=== PATIENT | female | born 1975 | race Native Hawaiian/Other Pacific Islander ===

== ENCOUNTER 2016-12-13 11:04 | Emergency (ER) | payer MEDICAID ==
[2016-12-13 11:04] VITALS: BMI 21.4
[2016-12-13 11:16] VITALS: BP 104/72; TEMP 98; O2SAT 100
--- NOTE | 2016-12-13 11:52 | RAD ---
Left wrist four views History: Pain and swelling. Comparison: None available. Findings: Soft tissue swelling at the level of the left wrist. No evidence of acute displaced fracture or dislocation. Impression: Soft tissue swelling. No evidence for acute displaced fracture. If pain persists, consider MRI.
--- NOTE | 2016-12-13 12:00 | C.PDOC ---
History Of Present Illness 41 y/o female presents to the ED with complaints of left hand and wrist swelling which onset yesterday, no known injury. 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 She reports pain with flexion and extension or the wrist. Denies weakness, numbness , fever or any other complaints. Time Seen by Provider: 12/13/16 11:23 Chief Complaint (Nursing): Upper Extremity Problem/Injury History Per: Patient History/Exam Limitations: no limitations Onset/Duration Of Symptoms: Hrs Current Symptoms Are (Timing): Still Present Quality: "Pain" Severity: Moderate Exacerbating Factor(s): Movement Recent travel outside of the [place]: No Past Medical History Reviewed: Historical Data, Nursing Documentation, Vital Signs Vital Signs: Last Vital Signs Temp 98.0 F 12/13/16 11:10 Pulse 79 12/13/16 12:13 Resp 18 12/13/16 12:13 BP 104/72 12/13/16 11:10 Pulse Ox 100 12/13/16 12:49 Family History: States: Unknown Family Hx - Social History Hx Tobacco Use: No Hx Alcohol Use: No Hx Substance Use: No - Immunization History Hx Tetanus Toxoid Vaccination: No Hx Influenza Vaccination: Yes Hx Pneumococcal Vaccination: No Review Of Systems Constitutional: Negative for: Fever Musculoskeletal: Positive for: Other (left wrist pain) Skin: Negative for: Rash Neurological: Negative for: Weakness, Numbness Physical Exam - Physical Exam Appears: Non-toxic, No Acute Distress Skin: Warm, Dry, No Rash Extremity: Normal ROM (to left shoulder, elbow; painful rom to left wrist. ), Tenderness (mid left wrist), Capillary Refill (<2 seconds), No Deformity, Swelling (Mild swelling to dorsum left hand and distal forearm), Other (Pain with flexion and extension left wrist. No redness or warmth. No pain to elbow with pronation/supination) Extremity: Left: Bony Point Tenderness (wrist), Bilateral: Atraumatic Pulses: Left Radial: Normal Neurological/Psych: Oriented x3, Normal Speech, Normal Motor, Normal Sensation ED Course And Treatment O2 Sat by Pulse Oximetry: 100 (room air) Pulse Ox Interpretation: Normal Progress Note: Plan: tylenol, cold pack, XR wrist Medical Decision Making Medical Decision Making: left wrist pain and swelling with no preceding injury. xray to r/o fx, possibly repetitive motion injury. 1207 pm xray neg for fx, will apply wrist splint, d/c with nsaids and ortho/ hand follow up. Disposition Counseled Patient/Family Regarding: Studies Performed, Diagnosis, Need For Followup, Rx Given - Disposition Referrals: Hebert Levine MD [Staff Provider] - Ella Bowers MD [Staff Provider] - Disposition: HOME/ ROUTINE Disposition Time: 12:10 Condition: STABLE Additional Instructions: Wear wrist splint in daytime for comfort. Cold compresses to swollen area 2-3 times per day. Take ibuprofen as prescribed. Follow up with Dr Levine ( orthopedist) or Dr Bowers (hand specialist). Call for an appointment. Prescriptions: Ibuprofen [Motrin] 600 mg PO TID #30 tab Instructions: Wrist Sprain (ED) Forms: General Discharge Instructions, Work Excuse - Clinical Impression Clinical Impression: Left wrist sprain - PA / HAND ROUNDER / Resident Statement MD/DO has reviewed & agrees with the documentation as recorded. - Scribe Statement The provider has reviewed the documentation as recorded by the Addis Romero All medical record entries made by the Addis were at my direction and personally dictated by me. I have reviewed the chart and agree that the record accurately reflects my personal performance of the history, physical exam, medical decision making, and the department course for this patient. I have also personally directed, reviewed, and agree with the discharge instructions and disposition.
[2016-12-13 12:16] VITALS: PULSE 79; RESP 18
== END 2016-12-13 12:16 | disposition home or self-care (01) ==
LOC: C.ER 11:04
DX: S63.502A Unspecified sprain of left wrist, initial encounter (principal); X58.XXXA Exposure to other specified factors, initial encounter

== ENCOUNTER 2017-10-01 07:37 | Emergency (ER) | payer MEDICAID ==
[2017-10-01 07:40] VITALS: BMI 21.4
[2017-10-01] MEDS ORDERED: Acetaminophen-Codeine 300/30 mg Tab PO STA (08:12)
--- NOTE | 2017-10-01 08:27 | RAD ---
PROCEDURE: Radiographs of the Right Shoulder HISTORY: pain COMPARISON: No prior. FINDINGS: BONES: Bone alignment and mineralization are normal. There is no acute displaced fracture or bone destruction. JOINTS: Normal. Glenohumeral and acromioclavicular joints preserved. SOFT TISSUES: Normal. OTHER FINDINGS: None. IMPRESSION: Normal radiographs of the right shoulder.
[2017-10-01] MEDS ORDERED: Acetaminophen-Codeine 300/30 mg Tab PO ONE (08:29)
--- NOTE | 2017-10-01 08:30 | C.PDOC ---
History Of Present Illness 42 y/o female presents to ED with c/o atraumatic right shoulder pain for 5 days. 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 Patient is right hand dominant and denies chest pain, sob, numbness or any other complaints at this time. Time Seen by Provider: 10/01/17 07:56 Chief Complaint (Nursing): Upper Extremity Problem/Injury History Per: Patient History/Exam Limitations: no limitations Onset/Duration Of Symptoms: Days Current Symptoms Are (Timing): Still Present Quality: "Pain" Past Medical History Reviewed: Historical Data, Nursing Documentation, Vital Signs Vital Signs: Last Vital Signs Temp 98.1 F 10/01/17 07:43 Pulse 60 10/01/17 07:43 Resp 16 10/01/17 07:43 BP 118/60 10/01/17 07:43 Pulse Ox 100 10/01/17 08:48 - Medical History PMH: No Chronic Diseases Surgical History: No Surg Hx Family History: States: No Known Family Hx - Social History Hx Tobacco Use: No Hx Alcohol Use: No Hx Substance Use: No - Immunization History Hx Tetanus Toxoid Vaccination: No Hx Influenza Vaccination: Yes Hx Pneumococcal Vaccination: No Review Of Systems Except As Marked, All Systems Reviewed And Found Negative. Musculoskeletal: Positive for: Shoulder Pain Physical Exam - Physical Exam Appears: Non-toxic, No Acute Distress Skin: Warm, Dry, No Rash Head: Atraumatic, Normacephalic Eye(s): bilateral: Normal Inspection Oral Mucosa: Moist Neck: Normal ROM, Supple Cardiovascular: Rhythm Regular Respiratory: Normal Breath Sounds, No Rales, No Rhonchi, No Wheezing Extremity: Tenderness (Reproducible to anterior right shoulder with ROM), Capillary Refill (<2 seconds), No Deformity, No Swelling Pulses: Right Radial: Normal Neurological/Psych: Oriented x3, Normal Motor, Normal Sensation ED Course And Treatment O2 Sat by Pulse Oximetry: 100 (RA) Pulse Ox Interpretation: Normal Medical Decision Making Medical Decision Making: Assessment: Shoulder pain Plan: Shoulder xray ordered. Motrin and Acetaminophen/Codeine administered. Progress: On re eval patient feel better. 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 Disposition Counseled Patient/Family Regarding: Studies Performed, Diagnosis, Need For Followup, Rx Given - Disposition Disposition: HOME/ ROUTINE Disposition Time: :45 Condition: STABLE Additional Instructions: follow up with your doctor in 2 days take pain medications as needed no heavy lifting call to make an appointment return to ER if symptoms worsens or progress Prescriptions: Acetaminophen/Codeine [Tylenol/Codeine 300 MG/30 MG] 1 tab PO Q6H PRN #12 tab PRN Reason: Pain, Severe (8-10) Ibuprofen [Motrin] 400 mg PO TID PRN #20 tab PRN Reason: Pain, Mild (1-3) Instructions: Joint Pain Forms: General Discharge Instructions, [facility] (Azeri), Work Excuse - Clinical Impression Clinical Impression: Joint pain - Scribe Statement The provider has reviewed the documentation as recorded by the Ruthibles Lai All medical record entries made by the Ruthibles were at my direction and personally dictated by me. I have reviewed the chart and agree that the record accurately reflects my personal performance of the history, physical exam, medical decision making, and the department course for this patient. I have also personally directed, reviewed, and agree with the discharge instructions and disposition.
[2017-10-01 09:19] VITALS: BP 110/70; PULSE 78; RESP 20; TEMP 98.2; O2SAT 98
== END 2017-10-01 09:21 | disposition home or self-care (01) ==
LOC: C.ER 07:37
DX: M25.511 Pain in right shoulder (principal)

== ENCOUNTER 2017-10-22 04:37 | Emergency (ER) | payer MEDICAID ==
[2017-10-22 04:37] VITALS: BMI 21.4
--- NOTE | 2017-10-22 04:41 | C.PDOC ---
History Of Present Illness The patient presents to the ED for evaluation of a severe right-sided headache which began yesterday. Patient also reports some nausea and mild photophobia. Patient has history of migraines and states her current symptoms feel similar to prior. Patient took Tylenol with transient relief. She is able to tolerate PO intake and denies fever, chills, vision change. Time Seen by Provider: 10/22/17 04:41 History Per: Patient History/Exam Limitations: no limitations Onset/Duration Of Symptoms: Hrs Current Symptoms Are (Timing): Still Present Severity: Mild Pain Scale Rating Of: 2 Quality: Aching, "Pain" Preceeding Symptoms: Known Migraine Symptoms Associated Symptoms: Photophobia, Nausea. denies: Blurred Vision Recent travel outside of the [place]: No Additional History Per: Patient Past Medical History Reviewed: Historical Data, Nursing Documentation, Vital Signs Vital Signs: Last Vital Signs Temp 97.9 F 10/22/17 04:44 Pulse 64 10/22/17 04:44 Resp 18 10/22/17 04:44 BP 144/93 H 10/22/17 04:44 Pulse Ox 98 10/22/17 05:10 - Medical History PMH: Migraine Surgical History: No Surg Hx Family History: States: Unknown Family Hx - Social History Hx Tobacco Use: No Hx Alcohol Use: No Hx Substance Use: No - Immunization History Hx Tetanus Toxoid Vaccination: No Hx Influenza Vaccination: Yes Hx Pneumococcal Vaccination: No Review Of Systems Constitutional: Negative for: Fever, Chills Eyes: Positive for: Other (photophobia ). Negative for: Vision Change Cardiovascular: Negative for: Chest Pain, Palpitations Respiratory: Negative for: Cough, Shortness of Breath Gastrointestinal: Positive for: Nausea. Negative for: Vomiting Skin: Negative for: Rash, Lesions, Jaundice, Bruising Neurological: Positive for: Headache. Negative for: Weakness, Numbness, Change in Speech, Altered Mental Status, Dizziness Physical Exam - Physical Exam Appears: Non-toxic, No Acute Distress Skin: Warm, Dry Head: Normacephalic Eye(s): bilateral: Normal Inspection, PERRL, EOMI Ear(s): Bilateral: Normal Nose: No Discharge Oral Mucosa: Moist Neck: Supple Chest: Symmetrical, No Deformity, No Tenderness Cardiovascular: Rhythm Regular, No Murmur Respiratory: No Rales, No Rhonchi, No Wheezing Extremity: Normal ROM Neurological/Psych: Oriented x3, Other (no focal deficits ) Gait: Steady ED Course And Treatment - Laboratory Results Result Diagrams: 10/22/17 05:17 10/22/17 05:17 O2 Sat by Pulse Oximetry: 98 (on RA) Pulse Ox Interpretation: Normal Progress Note: Bloodwork and CT Head ordered. Toradol IVP, Zofran IVP, and Lactated Ringers IV administered. Reevaluation Time: 06:10 Reassessment Condition: Improved Disposition Counseled Patient/Family Regarding: Studies Performed, Diagnosis, Need For Followup - Disposition Referrals: [facility] [Outside] [facility] [Outside] Disposition: HOME/ ROUTINE Disposition Time: 04:41 Condition: FAIR Additional Instructions: Please return if symptoms recur Prescriptions: Naproxen [Naprosyn] 1 tab PO BID PRN #25 tab PRN Reason: Pain Ondansetron ODT [Zofran ODT] 1 odt PO BID PRN #6 odt PRN Reason: Nausea/Vomiting Instructions: Migraine Headache (DC) - Clinical Impression Clinical Impression: Migraine - Scribe Statement The provider has reviewed the documentation as recorded by the Scribe (Anabel Allison) Provider Attestation: All medical record entries made by the Scribe were at my direction and personally dictated by me. I have reviewed the chart and agree that the record accurately reflects my personal performance of the history, physical exam, medical decision making, and the department course for this patient. I have also personally directed, reviewed, and agree with the discharge instructions and disposition.
[2017-10-22] MEDS ORDERED: Lactated Ringer's 1,000 ML IV STA (05:02)
[2017-10-22] MEDS ORDERED: Lactated Ringer's 1,000 ML ONE (05:20)
[2017-10-22 05:29] LABS: BASO # 0.1 K/uL (0.0-0.2); BASO % 1.2 % (0.0-2.0); EOS # 0.2 K/uL (0.0-0.7); EOS % 3.2 % (0.0-4.0); HEMOGLOBIN 10.8 g/dL (11.0-16.0); LYMPH # 2.9 K/uL (1.0-4.3); LYMPH % 41.3 % (20.0-40.0); MEAN CELL VOLUME 72.6 fL (81.0-99.0); MEAN CORPUSCULAR HEMOGLOBIN 24.1 pg (27.0-31.0); MEAN CORPUSCULAR HGB CONC 33.2 g/dL (33.0-37.0); MEAN PLATELET VOLUME 8.9 fL (7.2-11.7); MONO # 0.6 K/uL (0.0-0.8); MONO % 8.7 % (0.0-10.0); NEUT # 3.2 K/uL (1.8-7.0); NEUT % 45.6 % (50.0-75.0); NRBC % 0.1 % (0.0-2.0); RBC 4.51 Mil/uL (3.80-5.20)
[2017-10-22 05:31] LABS: WHITE BLOOD COUNT 6.9 K/uL (4.8-10.8)
[2017-10-22 05:33] LABS: BLOOD UREA NITROGEN 10 mg/dL (7-17); CALCIUM 8.8 mg/dl (8.6-10.4); GFR AFRICAN-AMERICAN > 60; GFR NON-AFRICAN AMERICAN > 60
--- NOTE | 2017-10-22 06:11 | CT ---
EXAM: CT Head Without Intravenous Contrast CLINICAL HISTORY: 42 years old, female; Pain; Headache TECHNIQUE: Axial computed tomography images of the head/brain without intravenous contrast. All CT scans at this facility use one or more dose reduction techniques, viz.: automated exposure control; ma/kV adjustment per patient size (including targeted exams where dose is matched to indication; i.e. head); or iterative reconstruction technique. COMPARISON: No relevant prior studies available. FINDINGS: Brain: Unremarkable. No hemorrhage. No significant white matter disease. No edema. Ventricles: Unremarkable. No ventriculomegaly. Bones/joints: Unremarkable. No acute fracture. Soft tissues: Unremarkable. Sinuses: Unremarkable as visualized. No acute sinusitis. Mastoid air cells: Unremarkable as visualized. No mastoid effusion. IMPRESSION: No evidence of an acute intracranial abnormality.
[2017-10-22 06:36] VITALS: BP 138/71; PULSE 72; RESP 20; TEMP 97.8; O2SAT 99
== END 2017-10-22 06:36 | disposition home or self-care (01) ==
LOC: C.ER 04:37
DX: G43.909 Migraine, unspecified, not intractable, without status migrainosus (principal)
CPT/HCPCS: 70450; 80048; 85025; 96361; 96374; 96375; 99285; J1885; J2405; J7120

== ENCOUNTER 2018-01-25 07:38 | Emergency (ER) | payer MEDICAID ==
[2018-01-25 07:38] VITALS: BMI 21.4
[2018-01-25 07:50] VITALS: TEMP 98.3
--- NOTE | 2018-01-25 08:27 | C.PDOC ---
History Of Present Illness 42 year old female patient presents to the ER with c/o pimple on chin and warm face. Patient reports she woke up and she found a pimple on her skin. Patien states her pimple is itchy but painless and she had never had it before. Patient denies fever, chills, trauma and dental. Chief Complaint (Nursing): Abnormal Skin Integrity History Per: Patient History/Exam Limitations: no limitations Onset/Duration Of Symptoms: Hrs Current Symptoms Are (Timing): Still Present Location Of Injury: Anterior: Face (pimple on chin) Quality Of Symptoms: Itching. denies: Painful Past Medical History Reviewed: Historical Data, Nursing Documentation, Vital Signs Vital Signs: Last Vital Signs Temp 98.3 F 01/25/18 09:21 Pulse 70 01/25/18 09:21 Resp 18 01/25/18 09:21 BP 127/88 01/25/18 09:21 Pulse Ox 100 01/25/18 09:21 - Medical History PMH: Migraine Family History: States: Unknown Family Hx - Social History Hx Tobacco Use: No Hx Alcohol Use: No Hx Substance Use: No - Immunization History Hx Tetanus Toxoid Vaccination: No Hx Influenza Vaccination: Yes Hx Pneumococcal Vaccination: No Review Of Systems Except As Marked, All Systems Reviewed And Found Negative. Constitutional: Positive for: Other (warm face; no trauma). Negative for: Fever , Chills Musculoskeletal: Negative for: Other (dental pain) Skin: Positive for: Other (pimple on chin) Physical Exam - Physical Exam Appears: No Acute Distress Skin: Warm, Dry, Other (central region redness on face; indurated; no fluctuance ) Head: Atraumatic, Normacephalic Eye(s): bilateral: Normal Inspection, PERRL, EOMI Ear(s): Bilateral: Normal Oral Mucosa: Moist Neck: Normal ROM, Supple Chest: Symmetrical, No Deformity Cardiovascular: Rhythm Regular Respiratory: Normal Breath Sounds Extremity: Normal ROM (x4) Neurological/Psych: Oriented x3, Normal Speech Gait: Steady ED Course And Treatment O2 Sat by Pulse Oximetry: 98 (RA) Pulse Ox Interpretation: Normal Medical Decision Making Medical Decision Making: Impression: Furuncle Plans: -- Kelfex -- Benadryl Reassess: Patient is resting comfortably. Tolerating PO. Patient is instructed to apply warm compress on pimple. Patient is prescribed benadryl for itchiness and keflex every 6 hours. Patient is advised to f/u with dental in 1-2 days. Disposition - Disposition Referrals: Ella Bowers MD [Staff Provider] - Disposition: HOME/ ROUTINE Disposition Time: 09:21 Condition: GOOD Prescriptions: Cephalexin [cephalexin] 500 mg PO Q6 7 Days #28 cap DiphenhydrAMINE [Benadryl] 25 mg PO Q6 #20 cap Ibuprofen [Motrin] 600 mg PO Q6 #20 tab Instructions: Skin Abscess Forms: [employer] (Maori) - Clinical Impression Clinical Impression: Abscess - Scribe Statement The provider has reviewed the documentation as recorded by the Scribe Dilcia Do Provider Attestation: All medical record entries made by the Scribe were at my direction and personally dictated by me. I have reviewed the chart and agree that the record accurately reflects my personal performance of the history, physical exam, medical decision making, and the department course for this patient. I have also personally directed, reviewed, and agree with the discharge instructions and disposition.
[2018-01-25] MEDS ORDERED: DiphenhydrAMINE 12.5 mg/5 ml LIQ UD (5 ml) PO STA (08:36)
[2018-01-25 09:22] VITALS: BP 127/88; PULSE 70; RESP 18
[2018-01-29 12:05] VITALS: O2SAT 98
== END 2018-01-25 09:21 | disposition home or self-care (01) ==
LOC: C.ER 07:38
DX: L02.01 Cutaneous abscess of face (principal)

== ENCOUNTER 2018-06-13 09:31 | Outpatient (CLI) | payer MEDICAID | END 2018-06-13 09:32 | disposition home or self-care (01) | LOC: C.MAMMO 09:31 | DX: Z12.31 Encounter for screening mammogram for malignant neoplasm of breast (principal) ==